=== PATIENT | male | born 1965 | race Caucasian/White ===

== ENCOUNTER 2018-01-16 19:06 | Emergency (ER) | payer OTHER ==
[~2018-01-16] VITALS: Ht 190.5 cm; Wt 131.4 kg
[~2018-01-16 19:06] MED LIST: ANAPROX DS550 M1 PO; FLOMAX0.4 MG PO; PERCOCET 5/31 TABLET PO; ZOFRAN ODT8 MG PO
[2018-01-16] MEDS ORDERED: KEFLEX500 MG PO (20:58)
[2018-01-16] MEDS ORDERED: ULTRACET1 TABLET PO (20:58)
[2018-01-16] MEDS ORDERED: MOTRIN600 MG PO (20:58)
[2018-01-16 21:18] VITALS: BP 171/113
== END 2018-01-16 21:18 | disposition home or self-care (01) ==
LOC: EME 19:06
PROC: 0HQGXZZ Repair Left Hand Skin, External Approach (ICD-10-PCS; principal; 2018-01-16)
DX: S62.635B Displaced fracture of distal phalanx of left ring finger, initial encounter for open fracture (principal); S67.10XA Crushing injury of unspecified finger(s), initial encounter; W31.89XA Contact with other specified machinery, initial encounter; Y93.H1 Activity, digging, shoveling and raking; Z88.2 Allergy status to sulfonamides
CPT/HCPCS: 73140; 99281; 99284

== ENCOUNTER 2018-06-18 20:34 | Observation (INO) | payer OTHER ==
[~2018-06-18] VITALS: Ht 190.5 cm; Wt 128.8 kg
[~2018-06-18 20:34] MED LIST changes: +KEFLEX500 MG PO; +MOTRIN600 MG PO; +ULTRACET1 TABLET PO
[2018-06-18 21:12] LABS: HEMATOCRIT 39.8 % (38.0-50.0); HEMOGLOBIN 13.6 G/DL (12.5-16.6); MCH 31.3 PG (29.0-34.0); MCHC 34.2 G/DL (30.0-36.0); MCV 91.7 FL (86-99); PLATELET COUNT 257 K/uL (156-360); RBC DIS.WIDTH-CV 12.7 % (11.8-14.6); RBC DIS.WIDTH-SD 42.3 % (39-53); RED BLOOD COUNT 4.34 M/uL (4.00-5.50); WHITE BLOOD COUNT 9.1 K/uL (4.1-10.2)
[2018-06-18 21:39] LABS: CHLORIDE 108 mEq/L (99-109); POTASSIUM 4.3 mEq/L (3.7-5.4); SODIUM 142 mEq/L (136-147)
[2018-06-18 21:41] LABS: GLUCOSE 101 mg/dL (70-99)
[2018-06-18 21:45] LABS: CREATININE 1.6 mg/dL (0.6-1.3); GFR ESTIMATE (CALCULATED) 48 mL/min/ (58.99-99999)
[2018-06-18 21:46] LABS: UREA NITROGEN (BUN) 36 mg/dL (9-23)
[2018-06-18 21:53] LABS: TROP-I INTERPRETATION NEGATIVE; TROPONIN-I < 0.01 ng/mL (0.0-0.30)
[2018-06-18] MEDS ORDERED: FLOMAX0.4 MG PO (22:09)
[2018-06-18] MEDS ORDERED: TRIAMTERENE-HC1 EAC1 PO (22:10)
[2018-06-18] MEDS ORDERED: TENORMIN50 MG PO (22:10)
[2018-06-18] MEDS ORDERED: LO-DOSE ASPIRIN81 M2 PO (22:11)
[2018-06-18] MEDS ORDERED: ADVIL200 MG PO (22:12)
[2018-06-18] MEDS ORDERED: METAMUCIL0.4 GM PO (22:12)
[2018-06-18] MEDS ORDERED: GLUCOSAMINE1000 MG PO (22:12)
[2018-06-18] MEDS ORDERED: B-COMPLEX-VITA1 EACH PO (22:13)
[2018-06-18] MEDS ORDERED: DAILY VITE1 EAC1 PO (22:13)
[2018-06-18 22:37] LABS: D-DIMER ELISA < 150.00 ng/mLDDU (<230)
[2018-06-18 22:41] LABS: ALBUMIN 4.4 g/dL (3.2-4.8)
[2018-06-18 22:43] LABS: TOTAL PROTEIN 7.8 g/dL (6.4-8.3)
[2018-06-18 22:45] LABS: TOTAL BILIRUBIN 0.3 mg/dL (0.0-1.0)
[2018-06-18 22:46] LABS: ALKALINE PHOSPHATASE 61 IU/L (3-129)
[2018-06-18 22:49] LABS: ALT (GPT) 30 IU/L (3-49); AST (GOT) 23 IU/L (2-34); DIRECT BILIRUBIN 0.1 mg/dL (0.0-0.3)
[2018-06-18 22:50] LABS: LIPASE 36 U/L (1.0-51.0)
[2018-06-18 23:49] VITALS: BP 152/81
[2018-06-19 03:23] LABS: CHLORIDE 109 mEq/L (99-109); POTASSIUM 4.2 mEq/L (3.7-5.4); SODIUM 142 mEq/L (136-147)
[2018-06-19 03:25] LABS: GLUCOSE 107 mg/dL (70-99)
[2018-06-19 03:29] LABS: CREATININE 1.5 mg/dL (0.6-1.3); GFR ESTIMATE (CALCULATED) 52 mL/min/ (58.99-99999)
[2018-06-19 03:30] LABS: UREA NITROGEN (BUN) 37 mg/dL (9-23)
[2018-06-19 03:37] LABS: TROP-I INTERPRETATION NEGATIVE; TROPONIN-I < 0.01 ng/mL (0.0-0.30)
[2018-06-19 05:04] VITALS: BP 173/99
[2018-06-19 08:25] VITALS: BP 171/86
[2018-06-19 08:30] LABS: APPEARANCE CLEAR ((CLEAR)); BILIRUBIN NEGATIVE; BLOOD NEGATIVE; COLOR YELLOW ((YELLOW)); GLUCOSE (STRIP) NEGATIVE; KETONES NEGATIVE; LEUKOCYTES NEGATIVE; NITRITE NEGATIVE; PROTEIN (STRIP) NEGATIVE; SPECIFIC GRAVITY 1.024 (1.000-1.030); UROBILINOGEN 0.2 MG/DL (0.2-1.0)
[2018-06-19 09:35] LABS: TROP-I INTERPRETATION NEGATIVE; TROPONIN-I < 0.01 ng/mL (0.0-0.30)
[2018-06-19 10:37] LABS: HDL CHOLESTEROL 33 MG/DL (Desirable>=40); LDL CHOLESTEROL 102 mg/dL (Desirable<100); NON-HDL CHOLESTEROL 149 mg/dL (Desirable<160); TOTAL CHOLESTEROL 182 mg/dL (Desirable<200); TRIGLYCERIDES 233 MG/DL (Normal: <150)
[2018-06-19 10:46] LABS: THYROTROPIN (TSH) 1.3 MIU/L (0.4-5.5)
[2018-06-19 12:43] LABS: HEMOGLOBIN A1c (GLYCOHEMOGLOB) 5.9 % (Below 5.7)
[2018-06-19 15:47] VITALS: BP 137/63
[2018-06-19] MEDS ORDERED: AMLODIPINE BESYL5 MG PO (16:47)
== END 2018-06-19 18:18 | disposition home or self-care (01) ==
LOC: EME 20:34 → 4SOUTH 22:33 → EDOF 22:33 → 4SOUTH 23:31
PROVIDERS: Hospitalist; Physician Assistant
DX: R07.89 Other chest pain (principal); I12.9 Hypertensive chronic kidney disease with stage 1 through stage 4 chronic kidney disease, or unspecified chronic kidney disease; N18.3 Chronic kidney disease, stage 3 (moderate); J45.909 Unspecified asthma, uncomplicated; Z88.2 Allergy status to sulfonamides; Z87.442 Personal history of urinary calculi; Z82.49 Family history of ischemic heart disease and other diseases of the circulatory system; E78.5 Hyperlipidemia, unspecified; Z79.82 Long term (current) use of aspirin
CPT/HCPCS: 71046; 71250; 80048; 80061; 80076; 81003; 82306; 83036; 83690; 84443; 84484; 85027; 85379; 93005; 93306; 99281; 99285; G0378; J1644; J7030